=== PATIENT | male | born 1950 | race Caucasian/White ===

== ENCOUNTER 2016-12-23 12:40 | Day surgery (SDC) | payer OTHER ==
[~2016-12-23] VITALS: Ht 172.7 cm; Wt 86.2 kg
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
[~2016-12-23 12:40] MED LIST: ASPI81TA3 PO; ATOR40TA69 PO; Lactated Ringer's 1,000 ML IV ONE; METO25TA6 PO; RAMI2.5C26 PO
[2016-12-23] MEDS ORDERED: fentaNYL-PF 50 mCg/mL 2 mL Inj ONE (12:41)
[2016-12-23] MEDS ORDERED: Propofol 10,000 mCg/mL 20 mL Inj ONE (12:41)
[2016-12-23 12:53] VITALS: BP 134/74; PULSE 69; RESP 16; O2SAT 97
[2016-12-23] MEDS ORDERED: Lactated Ringer's 1,000 ML IV SCH (13:23)
--- NOTE | 2016-12-23 13:23 | PCM.ANEP1 ---
Post Anesthesia Phase 1 PACU Phase 1 Assessment Vital Signs Vital Signs Date Time Temp Pulse Resp B/P Pulse Ox O2 Delivery O2 Flow Rate FiO2 12/23/16 12:53 36.5 69 16 134/74 97 Room Air Anesthetic Administered: MAC Level of Alertness: Awake, talking ABURTO's with Equal Strength: Yes Pain: No Nausea or Vomiting: No Oxygen Delivery: Nasal Cannula Lungs: Clear to Auscultation, Normal Air Movement Bruce Aguilar MD Dec 23, 2016 13:23
[2016-12-23 13:25] VITALS: BP 115/70; PULSE 57; RESP 16; O2SAT 97
[2016-12-23] MEDS ORDERED: MetoCLOpramide 5 mg/mL 2 mL Inj IVPUSH PRN (13:25)
[2016-12-23] MEDS ORDERED: Ondansetron 2 mg/mL 2 mL Inj IVPUSH PRN (13:25)
--- NOTE | 2016-12-23 13:30 | PCM.ANEP2 ---
Post Anesthesia Evaluation ASA/CMS Post Anesthesia VS in Patient's Normal Range?: Yes Resp Stable; Airway Patent?: Yes CV Function & Hydration Stable: Yes Mental Status Recovered?: Yes Pain control Satisfactory?: Yes N/V Control Satisfactory?: Yes Bruce Aguilar MD Dec 23, 2016 13:30
[2016-12-23 13:39] VITALS: BP 121/72; PULSE 58; RESP 16; O2SAT 95
--- NOTE | 2016-12-23 14:02 | ENDO ---
[address] [address] ENDOSCOPY PROCEDURE PATIENT: MELIA HARDWICK : 1950 MR#: [id number] ADMIT: 12/23/2016 JOB ID: [id number] DATE OF SERVICE: 12/23/2016 TYPE OF OPERATION: Colonoscopy with biopsy. PREOPERATIVE DIAGNOSIS(ES): History of colon polyps. POSTOPERATIVE DIAGNOSIS(ES): 1. Small internal hemorrhoids. 2. Four polyps seen in ascending and sigmoid colon, removed by cold biopsy forceps. Largest size 2 mm in diameter. ANESTHESIA: Monitored anesthesia care. COMPLICATIONS: None. BLOOD LOSS: Minimal. DESCRIPTION OF PROCEDURE: After risks and benefits explained to patient, informed consent was obtained. After anesthesia administered, colonoscope was then inserted from the rectum to cecum. Mucosa carefully examined. The prep of the patient was excellent. After procedure was done, the scope was withdrawn and the procedure terminated. FINDINGS: Upon inspection of the anus, no masses, hemorrhoids, ulcers, or fissures are seen. Throughout the entire examination there were four polyps in total that was seen. One in the ascending colon and three in the sigmoid colon, largest size 2 mm, and removed by cold biopsy forceps. Retroflexion showed small internal hemorrhoids. IMPRESSION: 1. Small internal hemorrhoids. 2. Four total polyps seen. One in ascending and three in the sigmoid colon, largest size 2 mm in diameter, removed by cold biopsy forceps. RECOMMENDATIONS: 1. Stool softener as needed. 2. If tubular adenoma for three or more polyps, the next colonoscopy in three years. If less than three tubular adenoma polyps, the next colonoscopy in five years.
--- NOTE | 2016-12-24 14:05 | PATH ---
SURGICAL PATHOLOGY Attending Physician:Jeff White MD CASE STATUS: Signed Out PATIENT NAME: MELIA HARDWICK PID: [id number] : 1950 DATE COLLECTED:12/23/2016 21:34 SPECIMEN: 1: Colon, Biopsy 2: Colon, Biopsy CLINICAL HISTORY: 1). SIGMOID COLON POLYPS X3 2). ASCENDING COLON POLYP FINAL DIAGNOSIS: 1.SIGMOID COLON POLYPS: HYPERPLASTIC POLYPS, 2 OF 2 BIOPSY FRAGMENTS. 2.ASCENDING COLON POLYP: TUBULAR ADENOMA, 1. ICD10 CODE D12.2 K63.5 GROSS DESCRIPTION: The specimen is received in two formalin filled containers labeled with the patient's name. 1). The specimen is sublabeled "sigmoid colon polyp" and consists of 2 portions of tissue which aggregate to 0.3 x 0.3 x 0.2 CM. The specimen is entirely submitted in cassette 1A. 2). The specimen is sublabeled "ascending colon polyp" and consists of 2 portions of tissue which aggregate to 0.3 x 0.2 x 0.2 CM. The specimen is entirely submitted in cassette 2A. 12/23/2016 [facility] MICRO DESCRIPTION: See diagnosis. ICD-9 CODES: CPT CODES: 1: 52686 2: 05815 Electronically Signed Out Geni Burnette MD [facility], [place] [address] Technical component performed at [facility], [facility] [address], [place], [address]
== END 2016-12-23 23:59 | disposition home or self-care (01) ==
LOC: END 12:40
PROVIDERS: ATTEND Internal Medicine Gastroenterology
DX: Z12.11 Encounter for screening for malignant neoplasm of colon (principal); D12.2 Benign neoplasm of ascending colon; K63.5 Polyp of colon; K64.8 Other hemorrhoids; Z86.010 Personal history of colon polyps; Z79.82 Long term (current) use of aspirin; Z79.899 Other long term (current) drug therapy
CPT/HCPCS: 45380; J2250; J3010; J7120

== ENCOUNTER 2017-06-03 10:13 | Day surgery (SDC) | payer OTHER ==
[2017-06-03] VITALS (9 sets, daily range): BP systolic 102–125; BP diastolic 54–84; PULSE 53–61; RESP 14–18; O2SAT 93–100
[~2017-06-03] VITALS: Ht 172.7 cm; Wt 83.7 kg
--- NOTE | 2017-06-03 08:00 | PCM.HPANE ---
Patient Data Surgeon Admitting Provider: Attending Provider:Dao Martin MD Primary Care Physician:Shikha Mullins MD Other Provider:Mai Dunaway Anesthesia Reason for Visit Left Rotator Cuff Tear Ht/WT & BMI Height (Feet): 5 Height (Inches): 8 Weight (Kilograms): 85.2 Body Mass Index 28.00 Allergies Coded Allergies: No Known Allergies (Verified Allergy, Unknown, 06/03/17) Past Anesthesia History Anesthesia History: Denies:: Abnormal Airway, Anesthesia Reactions, Difficult Intubation, Fam Anesthesia Reaction, Fam Malignant Hypertherm, Malignant Hyperthermia Diabetes History Hx Diabetes?: No MRSA MRSA: No Medications Blood Thinner: Aspirin Hypertension Medication: Yes Home Meds Incl Beta Pamela: Yes Active Scripts Ramipril (Altace)2.5 Mg Capsule2.5 Mg PO DAILY #30 CAPSULE Prov:Sara Hager MD 11/26/15 Metoprolol Tartrate 25 Mg [id number] Mg PO Q12 #60 TABLET Prov:Sara Hager MD 11/26/15 Atorvastatin Calcium 40 Mg [id number] Mg PO HS #30 TABLET Prov:Sara Hager MD 11/26/15 Aspirin Chew 81 Mg [id number] Mg PO DAILY 30 Days Prov:Sara Hager MD 11/26/15 Reported Medications Vit D3 & K/Berberine HCl/Hops (Ostera Tablet)1 Each Tablet1 Each PO 05/27/17 History History of ENT Problems?: No HEENT History: Denies:: Abnormal Airway Difficult Intubation Dysphagia Hearing Problem Sinus Problem TMJ Denture Type: None Teeth Condition: Within Normal Limits Hx of Heart Problems?: Yes Cardiovascular History: Positive for:: Cardiac Surgery (catherization = LAD stent 2015) Hypertension Denies:: AICD Abdominal Aortic Aneurism Atrial Fibrillation Chest Pain Congestive Heart Failure Edema Heart Murmur Irregular Heartbeat Pacemaker Peripheral Vascular Rheumatic Fever Valvular Heart Disease Hx of Respiratory Problem?: No Respiratory History: Denies:: Asthma COPD Chest Surgery Cough Dyspnea Emphysema Hemoptysis Pneumonia Pulmonary Embolism Tuberculosis Use of C-PAP Machine Use of Inhalers / NEBS Hx Neurologic Problems?: No Neurological History: Denies:: Alzheimer's Disease CVA Dementia Dizziness Headaches Multiple Sclerosis Parkinson's Disease Seizures TIA Hx of GI Problems?: Yes Hx of Problems?: No Genitourinary History: Denies:: HX of Hemodialysis Kidney Stones Urinary Tract Infection HX of Peritoneal Dialysis: No Male Hx: Positive for:: Prostate Problems (thinks he has BPH) Denies:: Scrotal Mass Testicular Surgery Skin History: Denies:: History Skin Disorders? Pressure Ulcers Hx Musculoskeletal Problems?: No Musculoskeletal History: Positive for:: Back Injury ("broken back crushed vertabra 5th lumbar") Denies:: Degenerative Joint Joint Replacement Musculoskeletal Trauma Osteoarthritis Rheumatoid Arthritis Hx of Psycho/Social Problems?: Yes Psycho Social History: Positive for:: Hx Depression Denies:: Anxiety Bipolar Disorder Suicide Attempt Hx Surgeries?: Yes (STENT, SPLEEN RUPTURE) Hx Any Other Health Problems?: Yes Other History: Positive for:: Hospitalization (2016 stent placement) Denies:: Cancer Thyroid Disease History Blood Transfusions: Positive for:: Accept Blood Products? Blood Transfusions Denies:: Blood Transfuse Reaction (not sure delevolped hep c after) Hx Diabetes: No Hx Alcohol Use: Yes (VERY LITTLE)Hx Substance Use: Yes (marijuana eats and occ smokes it) Smoking Status: Never Smoker Have You Smoked inLast 12 mo: No Stop/Bang S-Snoring: Do You Snore Loudly: No T-Tired: feel tired, fatigued: Yes O-Obsered: Observed not breath: No P-Blood Pressure: treated: No B- Body Mass Index > 35 kg/m2: No A- Age over 50: Yes N- Neck Large Circumference: No G- Gender Male: Yes QUYNH Total Score: 3 QUYNH Risk Assessment: High Risk, =/>3 Yes QUYNH Category 4 OutPt Procedure: Yes Risk Assessment Category Category 1A: Patient has history of documented sleep apnea, and HAS NOT received any narcotic, sedative or anesthesia administration during this stay. Category 1B: Patient has history of documented sleep apnea, and HAS received any narcotic , sedative or anesthesia administration during this stay Category 2: Patient has SUSPECTED Obstructive Sleep Apnea, and HAS received any narcotic , sedative or anesthesia administration during this stay. Category 3: Patient has SUSPECTED Obstructive Sleep Apnea and HAS NOT received narcotic, sedative or anesthesia administration during this stay. Category 4: Outpatient in Procedural Areas with known sleep apnea or who screen positive for High Risk via the STOP/BANG questionnaire. Exam Exam General Appearance: Alert, Oriented X3, Cooperative, No Acute Distress HEENT/AIRWAY: MP 2 Lungs: Clear to Auscultation, Normal Air Movement Heart: Exam Unremarkable, Regular Rate/Rhythm, No Murmurs/Rubs/Gallops Plan Impression Patient chart reviewed, patient interviewed and anesthestic plan with risks, benefits, and alternatives discussed, and informed consent obtained. NPO per Anesth. Guidelines: Yes ASA Physical Status: ASA2 Mod Systemic Disease Anesthetic Plan: GA Bene/Risks/Altern/Consents: Yes HP Complete Prior to Induction: Yes Catarino Moreno MD Jun 03, 2017 08:00
[~2017-06-03 10:13] MED LIST changes: +CeFAZolin Inj 2 GM in IV Premix 1 EACH IV ONE; -Lactated Ringer's 1,000 ML IV ONE; +VIT1TABL55 PO
[2017-06-03] MEDS ORDERED: Ketamine 10 mg/mL 20 mL Inj ONE (10:14)
[2017-06-03] MEDS ORDERED: Propofol 10,000 mCg/mL 20 mL Inj ONE (10:14)
[2017-06-03] MEDS ORDERED: Dexamethasone 4 mg/mL Inj ONE (10:14)
[2017-06-03] MEDS ORDERED: fentaNYL-PF 50 mCg/mL 2 mL Inj ONE (10:14)
[2017-06-03] MEDS ORDERED: Ondansetron 2 mg/mL 2 mL Inj ONE (10:14)
[2017-06-03] MEDS: Lactated Ringer's 1,000 ML IV SCH ×4 (12:16→16:20)
[2017-06-03] MEDS ORDERED: CeFAZolin Inj 2 gm / 50mL D5W IV ONE (12:33)
[2017-06-03] MEDS ORDERED: HYDROcodone-APAP 5-325 mg Tablet PO PRN (13:40)
[2017-06-03] MEDS ORDERED: Ketorolac 15 mg/mL Inj IVPUSH ONE (13:40)
--- NOTE | 2017-06-03 13:41 | PCM.ORTHOP ---
Orthopedic Operative Report Date of Service: Jun 03, 2017 Pre Operative Diagnosis Left shoulder rotator cuff tear, impingement syndrome, acromioclavicular joint arthritis, Post Operative Diagnosis Left shoulder full-thickness rotator cuff tear, impingement syndrome, acromioclavicular joint arthritis, synovitis Procedure Left shoulder arthroscopy, rotator cuff repair, subacromial decompression, distal clavicle excision, extensive debridement Surgeon Surgeon: Dao Martin MD Assistants:aDvid Post Indication for Procedure Left shoulder rotator cuff tear Findings Per dictation Details of Procedure DIE ENGRAVER SURGEON: During the operation, the services of physician certified surgical technologist were medically indicated and necessary to provide exposure of the operative site for the surgical procedure and to maintain the limb in a proper position to carry out the operation safely and efficiently. Without the qualified medical support assistant being present, it would have extended the operative procedure and made the procedure technically more difficult to perform. INDICATIONS: The patient is roxane Holbrookler is a 67-year-old male who has failed conservative treatment for left shoulder rotator cuff tear, impingement, acromioclavicular joint arthritis. The risks, benefits, and alternatives of surgery were discussed with the patient. The risks included but were not limited to infection, bleeding, damage to vessels and nerves, loss of motion, continued pain, complications due to anesthesia including myocardial infarction , stroke, , etc. The patient stated understanding of the nature of the surgical procedure and gave written and verbal consent to proceed. PROCEDURE: The patient was brought into the operating room and placed supine on the operating room table. A interscalene block was placed in the left shoulder for postoperative pain management, followed by the administration of general anesthesia. . The patient was then placed into the lateral decubitus position with the right side up. An axillary role was placed and the legs were padded as necessary to avoid pressure points. The patient was maintained in position with a beanbag evacuation device. A thorough examination of the left shoulder under anesthesia was performed. The patient had 120 degrees of forward elevation and 100 degrees of abduction. In 90 degrees of abduction there was 90 degrees of external rotation with 40 deg degrees of internal rotation. The shoulder was stable to load-shift testing. The left upper extremity was then prepped and draped in the usual fashion. The arm was suspended with a well-padded sleeve with eight/ten pounds of balanced suspension in the arthroscopic position. A standard posterior portal was made inferior and medial to the posterior corner of the acromion. The incision was made only through skin. The trocar was advanced through the soft tissue with a blunt-tipped obturator. This was inserted into the glenohumeral joint without difficulty. The 4 mm arthroscope was placed through the cannula and attached to the video monitor system. Inflow was achieved using the arthroscopic pump. The pressure was maintained at 35-40 mm of mercury throughout the entire procedure. Once the arthroscope confirmed visualization within the shoulder joint, it was advanced anteriorly into the rotator interval beneath the biceps tendon. A Wissinger puja was then used to create the anterior portal from inside-out. A second anterior stab wound incision was made only through skin and an anterior cannula was placed. A routine arthroscopic survey was begun. Survey: labral degenerative fraying, no biceps tendinitis, [id number] RTC tear 1cm X 1cm An extensive debridement was then performed of unstable cartilage, tendon, degenerative labral tissue , all debrided back to stable tissue The arm was then placed in the bursoscopy position. Complex surgical procedure: This was an extremely complex surgical procedure which took approximately 30-40 % longer to complete than a standard repair. Without the use of a qualified education administrative assistant, this surgical procedure would have taken even considerably longer and been unable to be performed arthroscopically. Deborah procedure: Within the subacromial space there was marked fraying on the undersurface of the coracoacromial ligament consistent with impingement. A decision was thus made to proceed with arthroscopic subacromial decompression. Using an RF wand and a motorized shaver the coracoacromial ligament was recessed from the anterior acromial edge. An orientation trough was made along the lateral margin of the acromion, from the anterior corner back to the posterior margin of the AC joint. A sequential subacromial smoothing was carried out, removing approximately 5 mm of bone corresponding to the preoperative radiographs. Once completed, the AC joint capsule was opened. There was inferior spurring as well as synovitis and arthritic changes at the AC joint and a decision was made to proceed with distal clavicle excision. Using a motorized bur working initially from posteriorly and then anteriorly, the outer 10 mm of the distal clavicle were excised- previous clavicle fracture was noted and no union was noted- fibrous nonunion noted. The arthroscope was then positioned anteriorly within the AC resection site confirming an excellent level of resection. Through a separate fascial incision, an extensive debridement of the subacromial space was then performed consisting of frayed CA ligament , inflamed bursal tissue, bursal sided tendon fraying. Single anchor supraspinatus repair Attention was then directed to the rotator cuff repair. Using the motorized shaver from both the anterolateral portal and the posterior portal, the free edge of rotator cuff was debrided. The anatomic neck of the tuberosity was then gently abraded, using the motorized shaver and exposing good bone for healing. Via an accessory anterolateral portal, a triple-loaded anchor was inserted, with excellent fixation purchase. The three stitches were then transported across the rotator cuff using a shuttling technique, spacing the sutures equidistantly. Once the sutures were all passed, they were sequentially tied, using SMC knots and alternating half-hitches, which gave excellent loop and knot security. This reduced the rotator cuff back to the anatomic neck. A microfracture was then performed laterally on the tuberosity creating a crimson duvet to aid in tendon healing. The arm was placed through range of motion and the rotator cuff and humeral head moved well as a unit. There was no further evidence for impingement. The subacromial space was irrigated with an additional 500 mL lactated Ringer solution. Excess fluid was drained. The arm was placed through a range of motion and the rotator cuff and humeral head moved well as a unit. There was no further evidence of impingement. The subacromial space was irrigated with an additional liter of lactated Ringer s solution and excess fluid was drained. The arthroscopic portals were closed with #4-0 Nylon and Steri-Strips. A dry sterile dressing was applied, followed by a neutral rotation sling. The patient was awakened in the operating room and transported to the recovery room in satisfactory condition. The patient appeared to tolerate the procedure well. There were no complications noted. Nonweightbearing to affected upper extremity. Please leave sling on at all times. You may remove sling 3 times a day to move the elbow wrist and fingers. Do not move your shoulder. Please keep the affected extremity elevated when possible. You may use ice and/or heat as needed for comfort. Follow-up in 2 weeks with me with 2-view xrays and for suture removal and Steri -Strip application, start physical therapy phase 1. Follow-up with me at 6 weeks, 12 weeks, 18 weeks with progression of physical therapy as per my protocol (please ask me for protocol if needed). Follow-up with me before full release at 5 months postop. Grafts, Implants: Implants-See Implant Record Complications There were no periprocedural complications identified. Condition Stable Anesthetic Administered: GA Catheters: None Output, Estimated Blood Loss: 5 Blood Admin during surgery: No Surgical Cast or Splint: Shoulder Immobilizer Surgical Specimen Removed: No Specimen sent to Pathology: No copies to: Dao Martin MD, Christopher L MD Jun 03, 2017 13:41 transported across the rotator cuff using a shuttling technique, spacing the sutures equidistantly. Once the sutures were all passed, they were sequentially tied, using SMC knots and alternating half-hitches, which gave excellent loop and knot security. This reduced the rotator cuff back to the anatomic neck. A microfracture was then performed laterally on the tuberosity creating a crimson duvet to aid in tendon healing. The arm was placed through range of motion and the rotator cuff and humeral head moved well as a unit. There was no further evidence for impingement. The subacromial space was irrigated with an additional 500 mL lactated Ringer solution. Excess fluid was drained. Two anchor helix supraspinatus repair Attention was then directed to the rotator cuff repair. Using the motorized shaver from both the anterolateral portal and the posterior portal, the free edge of rotator cuff was debrided. The anatomic neck of the tuberosity was then gently abraded, using the motorized shaver and exposing good bone for healing. Via an accessory anterolateral portal, two triple-loaded were then inserted with excellent fixation purchase. The 6 stitches from these two anchors were then transported across the rotator cuff spacing the sutures equidistantly. Once the sutures were all passed, they were sequentially tied using SMC knots and alternative half-hitches which gave excellent loop and knot security. This reduced the rotator cuff back to the anatomic neck. A microfracture was then performed laterally on the tuberosity creating a crimson duvet to aid in tendon healing. The arm was then placed through a range of motion. The rotator cuff and humeral head moved well as a unit. There was no further evidence for impingement ARTHROSCOPIC BICEPS TENODESIS Attention was then directed towards biceps tenodesis. With the arthroscope in the lateral viewing portal a motorized shaver was introduced from the anterior working portal, identifying the Mehalik hitch at the top of the bicipital groove. A motorized shaver and VAPR wand was then used inferior from this, debriding the proximal humerus and identifying the falciform ligament. The biceps tendon was then identified and the bicipital sheath was opened using a probe. The groove did reveal evidence of synovitis in this area. With appropriate resting tension maintained using the Mehalik hitch, a percutaneous spinal needle was used to jose j the resting position of the biceps tendon, as well as the position for tenodesis at the bottom of the inter-tubercular groove. A blue silas was then used to jose j with tendon. An accessory anterior inferior portal was made approximately 6-7 cm from the anterior acromial margin under arthroscopic control. A vadh-foz-pepckv technique was used to spread the soft tissues down to the level of the bicipital groove. The long head of the biceps was then retrieved using a grasper and the tendon was brought out the wound. A #2 Double loaded Fiberwire [place] Net stitch was placed for a length of 1.5 cm from the blue silas marking position in the proximal biceps. This was then sized using the Arthrex biotenodesis set and measured mm. A mm reamer was then selected. A Canuflex cannula was then placed onto the bicipital groove. The biotenodesis guide wire was placed into the proximal humerus at the designated marking position corresponding to the appropriate tension and introduced just to the posterior cortex. The anterior cortex was then reamed using the reamer for a depth of 20 mm. 2 7/64 holes were then created approximately 1.5 cm inferior to the tunnel for suture passing. A Spectrum suture hook was placed through the inferior pants presser automatic hole and retrieved out the proximal tunnel. A shuttling technique was carried out passing one suture limb on either side of the long head of the biceps. Tension was then applied to the biceps sutures, reducing and docking the biceps intra-osseously. With the elbow in full extension and the hand in full supination tension was applied to reapproximate the anatomic resting length and the biceps was then secured using an arthroscopic Revo knot, tying the two limbs of the suture together over the biceps tendon. This gave excellent secure fixation. The biceps was then probed and had stable fixation. The arm was placed through a range of motion and the rotator cuff and humeral head moved well as a unit. There was no further evidence of impingement. The subacromial space was irrigated with an additional liter of lactated Ringer s solution and excess fluid was drained. The arthroscopic portals were closed with #4-0 Nylon and Steri-Strips. A dry sterile dressing was applied, followed by a neutral rotation sling. The patient was awakened in the operating room and transported to the recovery room in satisfactory condition. The patient appeared to tolerate the procedure well. There were no complications noted. Nonweightbearing to affected upper extremity. Please leave sling on at all times. You may remove sling 3 times a day to move the elbow wrist and fingers. Do not move your shoulder. Please keep the affected extremity elevated when possible. You may use ice and/or heat as needed for comfort. Follow-up in 2 weeks with me with 2-view xrays and for suture removal and Steri -Strip application, start physical therapy phase 1. Follow-up with me at 6 weeks, 12 weeks, 18 weeks with progression of physical therapy as per my protocol (please ask me for protocol if needed). Follow-up with me before full release at 5 months postop. Grafts, Implants: Implants-See Implant Record Complications There were no periprocedural complications identified. Condition Stable Anesthetic Administered: GA Catheters: None Output, Estimated Blood Loss: 5 Blood Admin during surgery: No Surgical Cast or Splint: Shoulder Immobilizer Surgical Specimen Removed: No Specimen sent to Pathology: No copies to: Dao Martin MD, Christopher L MD Jun 03, 2017 13:41
[2017-06-03] MEDS ORDERED: Lactated Ringer's 500 ML IV PRN (14:44)
[2017-06-03] MEDS ORDERED: Ondansetron 2 mg/mL 2 mL Inj IVPUSH PRN (14:45)
[2017-06-03] MEDS ORDERED: EPHEDrine Sulfate 50 mg/mL Inj IVPUSH PRN (14:45)
[2017-06-03] MEDS ORDERED: Dexamethasone 4 mg/mL Inj IVPUSH PRN (14:45)
[2017-06-03] MEDS ORDERED: Phenylephrine 10,000 mCg/mL Inj IVPUSH PRN (14:45)
[2017-06-03] MEDS ORDERED: MetoCLOpramide 5 mg/mL 2 mL Inj IVPUSH PRN (14:45)
[2017-06-03] MEDS ORDERED: fentaNYL-PF 50 mCg/mL 2 mL Inj IVPUSH PRN (14:45)
[2017-06-03] MEDS ORDERED: HYDROmorphone 1 mg/mL Inj IVPUSH PRN (14:45)
--- NOTE | 2017-06-04 07:32 | PCM.ANEP1 ---
Post Anesthesia PACU Phase 1 Assessment Anesthetic Administered: GA Level of Alertness: Sleepy, easy to arouse ABURTO's with Equal Strength: Yes Pain: No Nausea or Vomiting: No CV Function & Hydration Stable: Yes Airway Device: Oralpharangeal Airway Oxygen Delivery: Simple Mask Lungs: Clear to Auscultation, Normal Air Movement Dermatome Level: Full Sensation PACU Phase 2 Assessment Complications: No Follow up Care: No Patient Instructions Provided: N/A Catarino Moreno MD Jun 04, 2017 07:32
== END 2017-06-03 23:59 | disposition home or self-care (01) ==
LOC: SAS 10:13
PROVIDERS: ATTEND Orthopaedic Surgery
DX: M75.122 Complete rotator cuff tear or rupture of left shoulder, not specified as traumatic (principal); M75.42 Impingement syndrome of left shoulder; M19.012 Primary osteoarthritis, left shoulder; M65.812 Other synovitis and tenosynovitis, left shoulder; I10 Essential (primary) hypertension; I25.5 Ischemic cardiomyopathy; R00.1 Bradycardia, unspecified; F43.10 Post-traumatic stress disorder, unspecified; B18.2 Chronic viral hepatitis C; F32.9 Major depressive disorder, single episode, unspecified; F12.20 Cannabis dependence, uncomplicated; Z79.82 Long term (current) use of aspirin; Z95.5 Presence of coronary angioplasty implant and graft
CPT/HCPCS: 29823; 29824; 29826; 29827; 76942; C1713; J1100; J1885; J2250; J2405; J2704; J2765; J3010; J7120